=== PATIENT | male | born 1955 | race Caucasian/White ===

== ENCOUNTER 2022-06-20 19:08 | Emergency (ER) | payer BC ==
[~2022-06-20] VITALS: Ht 170.2 cm; Wt 98.0 kg
[2022-06-20 19:13] VITALS: BP 130/73
--- NOTE | 2022-06-20 20:18 | NUR ---
Dr. Simons examining patient.
[2022-06-20] MEDS ORDERED: RABIES IMMUNE GLOBULIN/PF 150 UNIT/ML VIAL MC ONE (20:50)
[2022-06-20] MEDS ORDERED: RABIES VACCINE 2.5 IU VIAL IMVAC ONE (20:50)
[2022-06-20] MEDS ORDERED: AMOXIL/CLAVULANATE 875/125 MG 1 TAB PO ONE (20:50)
--- NOTE | 2022-06-20 21:12 | NUR ---
PT AMBULATED TO BED 4
[2022-06-20] MEDS ORDERED: AMOX-1230 PO (22:46)
--- NOTE | 2022-06-20 23:02 | NUR ---
Patient discharged. Written and verbal after care instructions given and explained. Patient alert, oriented and verbalized understanding of instructions. Ambulatory with steady gait. All questions addressed prior to discharge. ID band removed. Patient advised to follow up with PMD. Rx of Amox-Clav 875-125mg given. Patient educated on indication of medication including possible reaction and side effects. Opportunity to ask questions provided and answered.
== END 2022-06-20 23:02 | disposition home or self-care (01) ==
LOC: MED 19:08
DX: S30.811A Abrasion of abdominal wall, initial encounter (principal); S51.032A Puncture wound without foreign body of left elbow, initial encounter; E11.9 Type 2 diabetes mellitus without complications; I10 Essential (primary) hypertension; Z79.4 Long term (current) use of insulin; Z79.899 Other long term (current) drug therapy; W54.0XXA Bitten by dog, initial encounter; Y93.89 Activity, other specified; Y92.89 Other specified places as the place of occurrence of the external cause; Y99.8 Other external cause status
CPT/HCPCS: 90471; 90675; 90715; 99284

== ENCOUNTER 2022-06-23 15:55 | Emergency (ER) | payer BC ==
[~2022-06-23] VITALS: Ht 177.8 cm; Wt 108.0 kg
[~2022-06-23 15:55] MED LIST: AMOX-1230 PO
[2022-06-23 16:56] VITALS: BP 120/74
[2022-06-23] MEDS ORDERED: RABIES VACCINE 2.5 IU VIAL IMVAC ONE (17:30)
--- NOTE | 2022-06-23 22:30 | NUR ---
Patient discharged with out discharge instructions
== END 2022-06-23 22:30 | disposition home or self-care (01) ==
LOC: MED 15:55
DX: S60.512D Abrasion of left hand, subsequent encounter (principal); W54.0XXD Bitten by dog, subsequent encounter
CPT/HCPCS: 90471; 90675; 99282